=== PATIENT | male | born 1995 | race Caucasian/White ===

== ENCOUNTER → 2021-11-19 | Outpatient (CLI) | payer OTHER ==
--- NOTE | 2021-11-19 10:48 | XR ---
EXAMINATION TYPE: XR chest 2V DATE OF EXAM: 11/19/2021 COMPARISON: NONE HISTORY: Asbestosis exposure. TECHNIQUE: Frontal and lateral views of the chest are obtained. FINDINGS: There is no suspicious focal air space opacity, pleural effusion, or pneumothorax seen. T he cardiac silhouette size is within normal limits. The osseous structures are intact. IMPRESSION: Unremarkable study.
== END | disposition home or self-care (01) ==
LOC: RADXRMAIN 10:21
PROVIDERS: ATTEND Emergency Medicine
DX: Z77.090 Contact with and (suspected) exposure to asbestos (principal)
CPT/HCPCS: 71046

== ENCOUNTER → 2022-10-30 | Outpatient (CLI) | payer OTHER ==
--- NOTE | 2022-10-30 15:49 | XR ---
EXAMINATION TYPE: XR chest 2V DATE OF EXAM: 10/30/2022 COMPARISON: 11/19/2021 HISTORY: 27-year-old male Z77.090 CONTACT WITH AND (SUSPECTED) EXPOSURE TO A TECHNIQUE: Frontal and lateral views FINDINGS: The cardiomediastinal silhouette, aorta, and pulmonary vasculature are within normal limits. Lungs an d pleural spaces are clear. IMPRESSION: No acute cardiopulmonary process.
== END | disposition home or self-care (01) ==
LOC: RADXRMAIN 15:29
PROVIDERS: ATTEND Emergency Medicine
DX: Z77.090 Contact with and (suspected) exposure to asbestos (principal)
CPT/HCPCS: 71046